=== PATIENT | female | born 1930 | race Caucasian/White ===

== ENCOUNTER 2017-10-25 20:19 | Emergency (ER) | payer MEDICARE, BC ==
[~2017-10-25] VITALS: Ht 152.4 cm; Wt 54.0 kg
[~2017-10-25 20:19] MED LIST: CALC600T34 PO; LEVO.05 PO; NEBI5 PO; PROT40TA PO; TAB-TAB PO; VESI5TAB PO
[2017-10-25 20:22] VITALS: BP 211/88; PULSE 76; RESP 16; TEMP 98; O2SAT 98
[2017-10-25 22:28] LABS: BLOOD, URINE NEG (NEG); COMMENT (UR) CULT NOT INDICATED; CULTURE IF INDICATED CULT NOT INDICATED; GLUCOSE,URINE NEG (NEG); KETONE, URINE NEG (NEG); NITRITE,URINE NEG (NEG); PH, URINE 7.5 (5.0-8.5); SQUAMOUS EPITHELIAL CELL URINE <1 /hpf (0-5); URINE COLOR YELLOW (YELLW/STRAW)
--- NOTE | 2017-10-25 22:48 | PD ---
HPI . Increased confusion Chief Complaint: Neuro Symptoms/ Deficits Time Seen by Provider: 21:16 Travel History International Travel<30 days: No Contact w/Intl Traveler<30days: No Traveled to known affect area: No History of Present Illness HPI This is a patient who has Alzheimer's disease who continues to live at home with close supervision who presents to us today because of increased confusion. She reportedly had increased difficulty preparing her lunch today. She was subsequently brought to us for further evaluation. She has not had any focal neurological symptoms. She denies any physical complaints such as cold symptoms , cough, shortness of breath, vomiting, diarrhea, urinary tract symptoms. There have been no obvious modifying factors to her confusion. The confusion is mild. PFSH Past Medical History Cancer: No Cardiovascular Problems: Yes High Cholesterol: Yes Cerebrovascular Accident: Yes (tia 1964) Diabetes: No Diminished Hearing: No Endocrine: Yes Gastrointestinal Disorders: Yes Glaucoma: No Genitourinary: No Hepatitis: No Hiatal Hernia: No Hypertension: Yes Immune Disorder: No Medical other: Yes (HX STROKE) Musculoskeletal: No Reproductive: No Respiratory: No Immunizations Current: Yes Thyroid Disease: Yes (hypo) Tetanus Vaccination: Unknown Influenza Vaccination: Yes Menopausal: Yes Past Surgical History Abdominal Surgery: Yes (appendectomy, EXP LAP, SBO RESECTION, CARLA) Appendectomy: Yes Eye Surgery: Yes (RIGHT CATARACT SX) Pacemaker: No Other Surgery: Yes Social History Alcohol Use: No Tobacco Use: No Substance Use: No Allergies-Medications (Allergen,Severity, Reaction): Coded Allergies: No Known Allergies (Unverified Adverse Reaction, Unknown, 10/25/17) Reported Meds & Prescriptions Reported Meds & Active Scripts Active Reported Protonix (Pantoprazole Sodium) 40 Mg Tabdr 40 Mg PO DAILY Bystolic 5 Mg Tab (Nebivolol) 5 Mg Tab 5 Mg PO HS Vesicare (Solifenacin) 5 Mg Tab 5 Mg PO ONCE * SWALLOW TABLET WHOLE * Calcium 600 Mg Tab 600 Mg PO BID Synthroid (Levothyroxine Sodium) 50 Mcg Tab 75 Mcg PO DAILY Review of Systems Except as stated in HPI: all other systems reviewed are Neg Neurologic: Positive: Change in Mentation Physical Exam Narrative GENERAL: Awake and alert and oriented 4. SKIN: warm/dry. HEAD: Normocephalic. Atraumatic. EYES: Pupils equal and round. No scleral icterus. No injection or drainage. ENT: No nasal bleeding or discharge. Mucous membranes pink and moist. NECK: Trachea midline. Full range of motion without pain.. CARDIOVASCULAR: Regular rate and rhythm. Heart sounds normal. RESPIRATORY: No accessory muscle use. Clear to auscultation. Breath sounds equal bilaterally. GASTROINTESTINAL: Abdomen soft. Nontender. Bowel sounds present. Nondistended. MUSCULOSKELETAL: No obvious deformities. NEUROLOGICAL: Awake and alert. No obvious cranial nerve deficits. Motor grossly within normal limits. Normal speech. PSYCHIATRIC: Appropriate mood and affect; insight and judgment normal. Data Data Last Documented VS Vital Signs Date Time Temp Pulse Resp B/P (MAP) Pulse Ox O2 Delivery O2 Flow Rate FiO2 10/25/17 20:22 98.0 76 16 211/88 (129) 98 Room Air Orders Orders Urinalysis - C+S If Indicated (10/25/17 21:23) Labs Laboratory Tests Test 10/25/17 21:50 Urine Color YELLOW Urine Turbidity CLOUDY Urine pH 7.5 Urine Specific [place] 1.016 Urine Protein NEG mg/dL Urine Glucose (UA) NEG mg/dL Urine Ketones NEG mg/dL Urine Occult Blood NEG Urine Nitrite NEG Urine Bilirubin NEG Urine Urobilinogen LESS THAN 2.0 MG/DL Urine Leukocyte Esterase TRACE Urine RBC 3 /hpf Urine WBC 1 /hpf Urine Squamous Epithelial Cells <1 /hpf Urine Amorphous Sediment RARE Microscopic Urinalysis Comment CULT NOT INDICATED MDM Medical Decision Making Medical Screen Exam Complete: Yes Emergency Medical Condition: Yes Differential Diagnosis Differential diagnosis of altered mental status includes but is not limited to infection, electrolyte abnormality, neurological event, intoxication Narrative Course This is a patient with Alzheimer's dementia who presents because of increased confusion today. She has no physical exam findings. I have checked a urine which is negative for infection. She is stable for discharge to home. Diagnosis Primary Impression: Confusion Additional Impression: Alzheimer's dementia Qualified Codes: G30.9 - Alzheimer's disease, unspecified; F02.80 - Dementia in other diseases classified elsewhere without behavioral disturbance Patient Instructions: Altered Mental Status (ED), General Instructions Disposition: 01 DISCHARGE HOME Condition: Stable Gardenia Mena MD Oct 25, 2017 22:48
[2017-10-26 00:06] VITALS: BP 230/103; PULSE 84; RESP 16
[2017-10-26 01:00] VITALS: BP 209/88; PULSE 78; RESP 16; O2SAT 97
[2017-10-26] MEDS ORDERED: NEBIVOLOL 5 MG TAB PO ONE (01:15)
== END 2017-10-26 02:12 | disposition home or self-care (01) ==
LOC: NEPE 20:19
DX: G30.9 Alzheimer's disease, unspecified (principal); F02.80 Dementia in other diseases classified elsewhere, unspecified severity, without behavioral disturbance, psychotic disturbance, mood disturbance, and anxiety; E78.00 Pure hypercholesterolemia, unspecified; I10 Essential (primary) hypertension; E03.9 Hypothyroidism, unspecified; Z86.73 Personal history of transient ischemic attack (TIA), and cerebral infarction without residual deficits; Z79.899 Other long term (current) drug therapy
CPT/HCPCS: 81001; 99283